=== PATIENT | female | born 1940 | race Caucasian/White ===

== ENCOUNTER 2018-07-03 08:06 | Emergency (ER) | payer MEDICARE ==
[2018-07-03 08:23] VITALS: BP 149/74
[2018-07-03] MEDS ORDERED: DOXYcycline CAP(*) 100 MG PO ONE (08:59)
--- NOTE | 2018-07-03 09:01 | UC ---
Bite Injury/Animal HPI - HPI Summary HPI Summary: patient was gardening 2 days ago, she noticed a tick this morning behind her left knee, - History of Current Complaint Chief Complaint: TOSHIAkin Stated Complaint: TICK BITE Time Seen by Provider: 07/03/18 08:51 Hx Obtained From: Patient ?: No Severity Currently: None Severity Initially: Mild Pain Intensity: 0 Onset/Duration: Sudden Onset, Lasting Days - 2 - Allergies/Home Medications Allergies/Adverse Reactions: Allergies Allergy/AdvReac Type Severity Reaction Status Date / Time latex Allergy Rash Verified 07/03/18 08:24 Home Medications: Home Medications Levalbuterol HFA INHALER* [Xopenex Hfa Inhaler*] 1 puff INH Q6H PRN 07/03/18 [ History Confirmed 07/03/18] Zolpidem TAB* [Ambien TAB*] 5 mg PO BEDTIME PRN 07/03/18 [History Confirmed ] PMH/Surg Hx/FS Hx/Imm Hx Previously Healthy: Yes - Surgical History Surgical History: Yes Surgery Procedure, Year, and Place: cracked lt elbow - Social History Alcohol Use: Rare Substance Use Type: None Smoking Status (MU): Never Smoked Tobacco Review of Systems All Other Systems Reviewed And Are Negative: Yes Skin: Positive: Other - tick in left leg ENT: Positive: Negative Is Patient Immunocompromised?: No Physical Exam Triage Information Reviewed: Yes Appearance: Well-Appearing, No Pain Distress, Well-Nourished Vital Signs: Initial Vital Signs Temp 97.5 F 07/03/18 08:20 Pulse 60 07/03/18 08:20 Resp 16 07/03/18 08:20 BP 149/74 07/03/18 08:20 Pulse Ox 100 07/03/18 08:20 Vital Signs Reviewed: Yes Eye Exam: Normal ENT Exam: Normal Dental Exam: Normal Neck exam: Normal Respiratory Exam: Normal Cardiovascular Exam: Normal Abdominal Exam: Normal Bowel Sounds: Positive: Present Musculoskeletal Exam: Normal Neurological Exam: Normal Psychological Exam: Normal Skin: Positive: Other - intack engorged tick in left leg Bite Injury Course/Dx - Course Course Of Treatment: hx obtained, exam performed ,meds reviewed, tick removed without difficulty, one time dose of doxycycline given - Differential Dx/Diagnosis Provider Diagnosis: Tick bite Discharge - Sign-Out/Discharge Documenting (check all that apply): Patient Departure All imaging exams completed and their final reports reviewed: No Studies - Discharge Plan Condition: Stable Disposition: HOME Patient Education Materials: Lyme Disease (ED), Tick Bite (ED) Referrals: Talib Dugan MD [Primary Care Provider] - Additional Instructions: 1. take the medication with food, non dairy and follow up as needed. - Billing Disposition and Condition Condition: STABLE Disposition: Home - Attestation Statements Provider Attestation: I was available for consult. This patient was seen by the [facility]. The patient was not presented to , seen by or examined by md -Alireza Rangel MD
== END 2018-07-03 09:11 | disposition home or self-care (01) ==
LOC: UCEAST 08:06
DX: S80.262A Insect bite (nonvenomous), left knee, initial encounter (principal); W57.XXXA Bitten or stung by nonvenomous insect and other nonvenomous arthropods, initial encounter; Y93.H2 Activity, gardening and landscaping; Y92.096 Garden or yard of other non-institutional residence as the place of occurrence of the external cause; Z91.040 Latex allergy status
CPT/HCPCS: 99212; A9270-GY; G0463

== ENCOUNTER → 2018-12-20 | Day surgery (SDC) | payer MEDICARE ==
[~2018-12-20] MED LIST: Acetaminophen TAB* 325 MG PO PRN; Buffered Lidocaine 1% SYRIN* 1 ML/SYRINGE INTRADERM ONE; Midazolam* 1 MG/ML 5 ML VIAL (5 MG) ONE; fentaNYL* 50 MCG/ML 2 ML VIAL (100 MCG VIAL) ONE
--- NOTE | 2018-12-20 09:27 | OP ---
DATE OF OPERATION: 12/20/18 [facility] DATE OF : 42 SURGEON: Dr. Luis F Sheth. SALES AND MARKETING VICE PRESIDENT: None. ANESTHESIA: Topical with intravenous sedation. PRE-OP DIAGNOSIS: Cataract, left eye. POST-OP DIAGNOSIS: Cataract, left eye. OPERATIVE PROCEDURE: Phacoemulsification and cataract extraction with posterior chamber intraocular lens implant. COMPLICATIONS: None. BLOOD LOSS: None. DESCRIPTION OF PROCEDURE: The patient was brought to the operating room and received intravenous sedation. A drop of tetracaine was placed in her left eye. The patient was prepped and draped in the usual sterile fashion for ophthalmic surgery and attention was directed to the left eye where a speculum was placed. A paracentesis was created at the 5 o'clock position and 0.1 cc of 1% preservative- free lidocaine was injected into the anterior chamber followed by DisCoVisc. The eye was digitally stabilized while a 2.75 mm keratome was used to create a triplanar clear corneal incision at the 3 o'clock position. A continuous curvilinear capsulorrhexis was created with a cystotome and Utrata forceps. BSS on a cannula was used to hydrodissect the lens from the capsule. Phacoemulsification was performed in a [id number]-[id number] technique to create 4 fragments which were removed. Residual cortical material was removed with irrigation and aspiration. The capsular bag was polished. The capsular bag and anterior chamber were filled ProVisc. The intraocular pressure was measured and found to be appropriate to continue. The surface of the eye was lubricated with BSS. The ORA device was employed. An [id number] 19.0 diopter lens was chosen. This lens was inserted into the capsular bag. Irrigation and aspiration were performed to remove viscoelastic from the eye. BSS on a cannula was used to hydrate the corneal stroma and seal the wound. At the end of the case, the pupil was round, the lens was centered. The eye pressure was normal and the wound was watertight. The speculum was removed and topical Maxitrol ointment was placed on the surface of the eye. The eye was closed, patched, and shielded and the patient was sent to the recovery room in stable condition with postoperative instructions and followup appointment given. [id number]/[facility] #: [id number] [facility]
[2018-12-27 09:03] VITALS: BP 133/57
== END | disposition home or self-care (01) ==
LOC: OREAST 06:22
PROVIDERS: ATTEND Ophthalmology
DX: H25.12 Age-related nuclear cataract, left eye (principal); R73.03 Prediabetes; E78.5 Hyperlipidemia, unspecified; J45.909 Unspecified asthma, uncomplicated
CPT/HCPCS: A9270-GY; J2250; J3010; V2632; V2787

== ENCOUNTER 2018-12-27 06:20 | Day surgery (SDC) | payer MEDICARE ==
[2018-12-20 08:41] VITALS: BP 111/53
[~2018-12-27 06:20] MED LIST changes: +Cyclopentolate 1% OPTH.SOL* 2 ML BTL ONE; +Ketorolac 0.5% OPHTH (NF) 0.5 % 5 ML BTL ONE; +Lidocaine 1% MPF ** 5 ML VIAL ONE; -Midazolam* 1 MG/ML 5 ML VIAL (5 MG) ONE; +Neomycin/Polymy/Dex OPHTH.OIN* 3.5 GM ONE; +Phenylephrine OPHTH SOL 2.5%* 2 ML ONE; +Tetracaine 0.5% OPTH.SOL 4 ML* 1 DROP BTL ONE; +Tropicamide 1% OPTH.SOL* BTL ONE; -fentaNYL* 50 MCG/ML 2 ML VIAL (100 MCG VIAL) ONE
[2018-12-27] MEDS ORDERED: Midazolam* 1 MG/ML 2 ML VIAL (2 MG) ONE ×2 (07:14→07:37)
[2018-12-27] MEDS ORDERED: fentaNYL* 50 MCG/ML 2 ML VIAL (100 MCG VIAL) ONE (07:14)
[2018-12-27] MEDS ORDERED: Cyclopentolate 1% OPTH.SOL* 2 ML BTL ONE (09:08)
[2018-12-27] MEDS ORDERED: Tetracaine 0.5% OPTH.SOL 4 ML* 1 DROP BTL ONE (09:08)
[2018-12-27] MEDS ORDERED: Ketorolac 0.5% OPHTH (NF) 0.5 % 5 ML BTL ONE (09:08)
[2018-12-27] MEDS ORDERED: Tropicamide 1% OPTH.SOL* BTL ONE (09:08)
[2018-12-27] MEDS ORDERED: Phenylephrine OPHTH SOL 2.5%* 2 ML ONE (09:08)
[2018-12-27] MEDS ORDERED: Lidocaine 1% MPF ** 5 ML VIAL ONE (09:08)
[2018-12-27] MEDS ORDERED: Neomycin/Polymy/Dex OPHTH.OIN* 3.5 GM ONE (09:08)
--- NOTE | 2018-12-27 09:13 | OP ---
DATE OF OPERATION: 12/27/18 [facility] DATE OF : 42 SURGEON: Luis F Sheth MD TOOL AND DIE ENGINEER: None. ANESTHESIA: Topical with intravenous sedation. PRE-OP DIAGNOSIS: Cataract with astigmatism, right eye. POST-OP DIAGNOSIS: Cataract with astigmatism, right eye. OPERATIVE PROCEDURE: Phacoemulsification and cataract extraction with posterior chamber intraocular lens (Toric IOL) COMPLICATIONS: None. BLOOD LOSS: None. DESCRIPTION OF PROCEDURE: The patient was brought to the operating room and given intravenous sedation. A drop of Tetracaine was placed in her right eye. The patient was prepped and draped in the usual sterile fashion for ophthalmic surgery and attention was directed to the right eye where a speculum was placed. A paracentesis was created at the 11 o'clock position and 0.1 cc of 1% preservative free lidocaine was injected into the anterior chamber followed by DisCoVisc. The eye was digitally stabilized while a 2.75 mm keratome was used to create a triplanar clear corneal incision at the 9 o'clock position. A continuous curvilinear capsulorrhexis was created using a cystotome and Utrata forceps. BSS on a cannula was used to hydrodissect the lens from the capsule. Phacoemulsification was performed in a [id number]-pyn-xmrarhi technique to create 4 fragments which were removed. Residual cortical material was removed with irrigation and aspiration. The capsular bag was polished. The capsular bag was then inflated with ProVisc. The intraocular pressure was measured and the surface of the eye was lubricated. The ORA instrument was employed. An [id number] 19.5 Diopter lens was chosen. The reticle on the ORA guided the lens placement. The lens was positioned into the capsule and dialed to the 48 degree access. The lens was stabilized with the paracentesis with a Sinskey hook while irrigation and aspiration were performed to remove Viscoelastic from the eye. The Sinskey hook was removed. BSS on a cannula was used to hydrate the corneal stroma and seal the wound. At the end of the case the pupil was round. The lens was centered, stable, and axially aligned. The eye pressure appeared normal and the wound was water tight. The speculum was removed. Topical Maxitrol ointment was placed on the surface of the eye. The eye was closed, patched, and shielded, and the patient was sent to recovery room in stable condition with postop instructions and follow-up appointment given. [id number]/[facility] #: [id number] [facility]
== END 2018-12-27 08:22 | disposition home or self-care (01) ==
LOC: OREAST 06:20
PROVIDERS: ATTEND Ophthalmology
DX: H25.11 Age-related nuclear cataract, right eye (principal); H52.201 Unspecified astigmatism, right eye; R00.2 Palpitations; J45.909 Unspecified asthma, uncomplicated; R73.03 Prediabetes; F41.8 Other specified anxiety disorders; E78.5 Hyperlipidemia, unspecified
CPT/HCPCS: A9270-GY; J2250; J3010; V2632; V2787